=== PATIENT | male | born 1970 | race Caucasian/White ===

== ENCOUNTER 2025-03-16 18:38 | Emergency (ER) | payer OTHER, SELFPAY ==
[2025-03-16 18:48] VITALS: BP 151/83; PULSE 108; TEMP 37.1; O2SAT 96; BMI 47.9
--- NOTE | 2025-03-16 19:12 | ECG_ITS ---
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 Measurements Intervals [place] Rate: 96 P: 61 IN: 174 QRS: 29 QRSD: 86 T: 16 QT: 332 QTc: 385 Interpretive Statements 1100 Sinus rhythm 9110 normal ECG Compared to ECG 01/21/2019 23:41:21 T-wave abnormality no longer present Electronically Signed On 03-17-2025 19:54:16 EDT by ADWOA NGUYỄN M.D.
--- NOTE | 2025-03-16 19:12 | CT_ITS ---
[address] [address] Patient Name: ELISEO ACEVEDO MRN: [id number] date: 1970 Sex: M Assigned Patient Location: ER Current Patient Location: ER Accession/Order Number: [id number] Exam Date: 03/16/2025 19:25 Report Date: 03/16/2025 19:43 At the request of: TITUS CROFT MD Procedure: CT head/brain wo con Unenhanced head CT TECHNIQUE: Contiguous axial imaging of the head. The CT exam was performed using one or more the following dose reduction techniques: Automated exposure control, adjustment of the MA and/or Kv according to patient size, or use of the iterative reconstruction technique. COMPARISON: None HISTORY: New onset of dizziness VENTRICLES: Within normal limits ATROPHY: None BRAIN PARENCHYMA: Adequate malcolm-white matter differentiation identified. HEMORRHAGE: None HERNIATION: No mass effect or herniation INFARCTION: No recent vascular distribution infarction is seen. EXTRA-AXIAL FLUID COLLECTIONS None MIDBRAIN: Unremarkable CAITLIN: Unremarkable MEDULLA: Unremarkable SINUSES: Unremarkable ORBITS: Grossly unremarkable MASTOIDS: Unremarkable BONY STRUCTURES Intact ADDITIONAL FINDINGS: CT/CT head/brain wo con IMPRESSION: No acute findings. Impression dictated by: Arnaldo Carrillo M.D. 03/16/2025 7:43 PM Dictation Location: [place] [address] Electronically authenticated by: [id number] Y Date: 03/16/2025 19:43
--- NOTE | 2025-03-16 19:13 | ED_ITS ---
HPI - Dizziness General Chief Complaint: Dizziness Stated Complaint: DIZZY Time Seen by Provider: 03/16/25 19:03 Source: patient Mode of arrival: walk-in Limitations: no limitations History of Present Illness HPI Narrative: This 55-year-old male with a history of migraine headaches and high cholesterol who had a cortisone injection in his left shoulder today for arthritis was sent to the emergency department from work for evaluation of dizziness. The patient states he picked up apart and twisted to put it down and suddenly felt lightheaded. He states he had a sensation of the room spinning. His symptoms are intermittent at this time with a mild general headache. He denies any nausea or vomiting. He states he did not pass out. He has no neck pain. He has no focal weakness numbness or tingling. He denies any chest pain or shortness of breath. He has no abdominal pain or back pain. He has no lower extremity pain or swelling. He has not had any episodes of confusion slurred speech or change in his vision. He was sent to the emergency department after being seen at the health clinic. The patient states they did not want him passing out at work. Someone in the health clinic told him that he had redness in his left ear. Related Data Home Medications ?Medication ?Instructions ?Recorded ?Confirmed doxepin 25 mg capsule mg 03/16/25 ergocalciferol (vitamin D2) 1,250 03/16/25 mcg (50,000 unit) capsule simvastatin 20 mg tablet mg 03/16/25 Allergies Allergy/AdvReac Type Severity Reaction Status Date / Time No Known Drug Allergies Allergy Verified 03/16/25 18:55 Review of Systems ROS Status of ROS 10 or more systems reviewed and unremark able except as noted in history and below Exam Narrative Exam Narrative: Vital signs and Nursing Notes reviewed: Patient is afebrile with an elevated pulse at 108, blood pressure is elevated 151/83, he is not hypoxic with pulse ox of 96% on room air General: Overweight adult male, he is awake, alert, oriented, no acute distress, lying comfortably on the stretcher-GCS 15 HEENT: Normocephalic atraumatic, mucous membranes are moist and pink, eyes are clear, normal conjunctiva, vision is grossly intact, posterior pharynx is normal in appearance. Tympanic membranes are normal bilaterally-there is a small amount of cerumen in the external left ear canal with no redness or swelling in the ear canal, tympanic membrane is normal in appearance and there is no appreciable effusion Neck: Supple, nontender, no pulsatile masses appreciated, no carotid bruits appreciated Chest: Lungs are clear to auscultation with good air entry, there is no wheezing rhonchi or rales appreciated no accessory muscle use, patient is speaking in complete sentences-no chest wall tenderness to palpation CVS: Regular rate and rhythm S1-S2, no murmurs rubs or gallops, pulses are brisk and equal bilaterally ABD: Obese, soft, nondistended, nontender, no rebound guarding or rigidity, bowel sounds are normal, no pulsatile masses appreciated Extremities: Moving all extremities, no lower extremity tenderness or swelling noted, negative Homans' sign, pulses are brisk and equal bilaterally Skin: Normal in appearance without rash,pallor, petechiae or purpura Neuro: No focal deficits, speech is clear, 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, upper and lower extremity strength and sensation is intact, no facial droop, negative pronator drift, positive rapid alternating hand movements, NIH stroke scale is 0 Constitutional Vital Signs, click to edit/add: Last Vital Signs Temp 98.8 F 03/16/25 18:48 Pulse 108 H 03/16/25 18:48 Resp 14 03/16/25 18:48 BP 151/83 H 03/16/25 18:48 Pulse Ox 96 03/16/25 18:48 O2 Del Method Room Air 03/16/25 18:48 Course Vital Signs Vital signs: Vital Signs Temperature 98.8 F 03/16/25 18:48 Pulse Rate 108 H 03/16/25 18:48 Respiratory Rate 14 03/16/25 18:48 Blood Pressure 151/83 H 03/16/25 18:48 Pulse Oximetry 96 03/16/25 18:48 Oxygen Delivery Method Room Air 03/16/25 18:48 Temperature 98.8 F 03/16/25 18:48 Pulse Rate 108 H 03/16/25 18:48 Respiratory Rate 14 03/16/25 18:48 Blood Pressure 151/83 H 03/16/25 18:48 Pulse Oximetry 96 03/16/25 18:48 Oxygen Delivery Method Room Air 03/16/25 18:48 MDM - Dizziness MDM Narrative Medical decision making narrative: This 55-year-old male who is obese and has a history of high cholesterol and migraine headaches was referred to the emergency department from [facility] for an evaluation of an episode of dizziness that occurred after he picked up a part and twisted to put it down. He denies any injury. He has no neck pain or swelling. There is no pulsatile masses. His neuroexam is normal. He does complain of some mild headache. He does not have any nausea or vomiting. He denies any chest pain or shortness of breath. He did have a cortisone shot earlier in the day. Upon arrival he was afebrile with mild tachycardia and elevated blood pressure. EKG is in normal sinus rhythm at [address] scan of the brain is negative. Cardiac labs were ordered. He has normal white count and stable hemoglobin. Electrolytes are normal with exception of an elevated c reatinine at 1.41 and a CO2 of 17.8. 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 I do not have a prior set of labs for comparison purposes. His glucose is minimally elevated at 129. Liver function test and troponin are both normal. The patient was up to the bathroom without difficulty and states that he is feeling somewhat better although did feel mildly dizzy upon going back into his room. After liter of normal saline, repeat BMP and troponin was ordered. Repeat BMP is improved with a creatinine now of 1.3. Troponin is still normal. I offered the patient admission for further hydration and continue monitoring but he wishes to be discharged home at this time. The patient's states that she thinks he is getting a migraine headache. His headache is improved but is still mildly present. His neuroexam remains normal. I am reluctant to give him any Toradol due to the elevated creatinine today. The patient states he is going to go home and go to bed. He was encouraged to drink plenty of fluids and follow- up closely with his family physician. Lab Data Attestation: I reviewed the patient's lab results. Labs: Lab Results 03/16/25 03/16/25 Range/Units 19:45 21:18 WBC 6.2 (4.0-11.0) 10^3/uL RBC 5.52 (4.70-6.10) 10^6/uL Hgb 16.3 (14.0-18.0) g/dL Hct 47.2 (42.0-54.0) % MCV 85.5 (80.0-94.0) fL MCH 29.5 (25.9-34.0) pg MCHC 34.5 (29.9-35.2) g/dL RDW 12.7 (11.0-15.0) % Plt Count 243 (150-450) 10^3/uL MPV 11.6 (9.5-13.5) fL Seg Neuts % (Manual) 89.0 H (43.0-75.0) Lymphocytes % (Manual) 4.0 L (20.5-60.0) % Atypical Lymphs % (Man) 1.0 % Monocytes % (Manual) 6.0 (1.7-12.0) % Eosinophils % (Manual) 0.0 L (0.9-7.0) % Basophils % (Manual) 0.0 L (0.2-2.0) % Neutrophils # (Manual) 5.51 (1.4-6.5) 10^3/uL Lymphocytes # (Manual) 0.24 L (1.20-3.80) 10^3/uL Abs Atypical Lymphs Man 0.06 Monocytes # (Manual) 0.37 (0.30-0.80) 10^3/uL Eosinophils # (Manual) 0.00 (0.00-0.70) 10^3/uL Basophils # (Manual) 0.00 (0.00-0.10) 10^3/uL Sodium 139 139 (136-145) mmol/L Potassium 3.8 3.9 (3.5-5.1) mmol/L Chloride 108 H 109 H (98-107) mmol/L Carbon Dioxide 17.8 L 18.5 L (21.0-32.0) mmol/L Anion Gap 17.0 15.4 BUN 20.0 H 20.0 H (7.0-18.0) mg/dL Creatinine 1.41 H 1.30 (0.70-1.30) mg/dL Est GFR ( Amer) >60 >60 (>=60 mL/min/1.73m^2) Est GFR (Non-Af Amer) 52 L 57 L (>=60 mL/min/1.73m^2) BUN/Creatinine Ratio 14.2 15.4 Glucose 129 H 129 H (74-106) mg/dL Calcium 9.0 8.6 (8.5-10.1) mg/dL Total Bilirubin 0.6 (0.2-1.0) mg/dL AST 36 (15-37) U/L ALT 82 H (16-63) U/L Alkaline Phosphatase 105 (46-116) U/L Troponin I High Sens 6.4 6.1 (4.0-76.1) pg/mL Total Protein 7.7 (6.4-8.2) g/dL Albumin 3.8 (3.4-5.0) g/dL Globulin 3.9 g/dL Albumin/Globulin Ratio 1.[address] scan - head: Radiologist's impression: ITS Impressions Head CT 03/16/25 19:12 IMPRESSION: No acute findings. Impression dictated by: Arnaldo Carrillo M.D. 03/16/2025 7:43 PM [facility]ation [facility] Electron[facility] authenticated by: [id number] Y Date: 03/16/2025 19:43 ECG Data Attestation: I personally reviewed and interpreted this ECG as follows: (Sinus rhythm at 96 bpm, normal axis, normal intervals, no acute ST segment elevation or T wave inversion) Discharge Plan Discharge Chief Complaint: Dizziness Clinical Impression: Dizziness, Dehydration, mild Patient Disposition: Home, Self-Care Time of Disposition Decision: 21:54 Condition: Good Prescriptions / Home Meds: No Action doxepin 25 mg capsule simvastatin 20 mg tablet ergocalciferol (vitamin D2) 1,250 mcg (50,000 unit) capsule Print Language: Bhutanese Instructions: Dehydration (ED), Dizziness (ED) Referrals: NEVAEH MORIN [Primary Care Provider, Family Practice] - 1 week
[2025-03-16] MEDS: MECLIZINE HCL 12.5 MG TABLET 25 MG PO (19:43)
[2025-03-16] MEDS: 0.9 % SODIUM CHLORIDE 1,000 ML 1000 ML IV (19:43)
[2025-03-16] MEDS: ACETAMINOPHEN 325 MG TABLET 650 MG PO (19:43)
[2025-03-16 20:22] LABS: Hematocrit 47.2 % (42.0-54.0); Hemoglobin 16.3 g/dL (14.0-18.0); Mean Corpuscular HGB Conc 34.5 g/dL (29.9-35.2); Mean Corpuscular Hemoglobin 29.5 pg (25.9-34.0); Mean Corpuscular Volume 85.5 fL (80.0-94.0); Platelet Count 243 10^3/uL (150-450); Red Blood Count 5.52 10^6/uL (4.70-6.10); White Blood Count 6.2 10^3/uL (4.0-11.0)
[2025-03-16 20:36] LABS: Atypical Lymphocytes % Manual 1.0 %; Atypical Lymphocytes Abs Man 0.06; Basophils Abs Manual 0.00 10^3/uL (0.00-0.10); Basophils Percent Manual 0.0 % (0.2-2.0); Eosinophils Absolute Manual 0.00 10^3/uL (0.00-0.70); Eosinophils Percent Manual 0.0 % (0.9-7.0); Lymphocytes Absolute Manual 0.24 10^3/uL (1.20-3.80); Lymphocytes Percent Manual 4.0 % (20.5-60.0); Monocytes Absolute Manual 0.37 10^3/uL (0.30-0.80); Monocytes Percent Manual 6.0 % (1.7-12.0); Segmented Neut Absolute Manual 5.51 10^3/uL (1.4-6.5); Segmented Neutrophils % Manual 89.0 (43.0-75.0)
[2025-03-16 20:38] LABS: Alanine Aminotransferase 82 U/L (16-63); Albumin Globulin Ratio 1.0; Albumin Level 3.8 g/dL (3.4-5.0); Alkaline Phosphatase 105 U/L (46-116); Anion Gap 17.0; Aspartate Amino Transferase 36 U/L (15-37); Blood Urea Nitrogen 20.0 mg/dL (7.0-18.0); Calcium 9.0 mg/dL (8.5-10.1); Carbon Dioxide 17.8 mmol/L (21.0-32.0); Chloride 108 mmol/L (98-107); Estimated GFR (African America >60 (>=60 mL/min/1.73m^2); Estimated GFR (Non-African Ame 52 (>=60 mL/min/1.73m^2); Globulin 3.9 g/dL; Glucose 129 mg/dL (74-106); Potassium 3.8 mmol/L (3.5-5.1); Sodium 139 mmol/L (136-145); Total Protein 7.7 g/dL (6.4-8.2)
[2025-03-16 21:42] LABS: Anion Gap 15.4; Blood Urea Nitrogen 20.0 mg/dL (7.0-18.0); Calcium 8.6 mg/dL (8.5-10.1); Carbon Dioxide 18.5 mmol/L (21.0-32.0); Chloride 109 mmol/L (98-107); Estimated GFR (African America >60 (>=60 mL/min/1.73m^2); Estimated GFR (Non-African Ame 57 (>=60 mL/min/1.73m^2); Glucose 129 mg/dL (74-106); Potassium 3.9 mmol/L (3.5-5.1); Sodium 139 mmol/L (136-145)
[2025-03-16 22:01] VITALS: BP 132/80; PULSE 80; O2SAT 98
== END 2025-03-16 22:04 | disposition home or self-care (01) ==
PROVIDERS: Emergency Provider Emergency Medicine; PCP Family Medicine
DX: E86.0 Dehydration (principal); R42 Dizziness and giddiness; E78.00 Pure hypercholesterolemia, unspecified; E66.9 Obesity, unspecified; Z68.42 Body mass index [BMI] 45.0-49.9, adult
CPT/HCPCS: 36415; 70450; 80048; 80053; 84484; 85007; 85027; 93005; 99285

== ENCOUNTER 2025-03-22 16:28 | Emergency (ER) | payer OTHER, SELFPAY ==
[2025-03-22] VITALS (22 sets, daily range): BP systolic 123–150; BP diastolic 82–95; PULSE 60–74; TEMP 37.1; O2SAT 95–97; BMI 47.8
--- NOTE | 2025-03-22 17:05 | CT_ITS ---
The [address] [address] Patient Name: ELISEO ACEVEDO MRN: [id number] date: 1970 Sex: M Assigned Patient Location: ER Current Patient Location: ER Accession/Order Number: [id number] Exam Date: 03/22/2025 17:12 Report Date: 03/22/2025 17:23 At the request of: CHRISTIANE ANGUIANO MD Procedure: CT head/brain wo con CT BRAIN WITHOUT CONTRAST: CLINICAL HISTORY: imbalance COMPARISON: CT brain 03/16/2025 TECHNIQUE: Contiguous axial unenhanced images were obtained through the brain. This CT exam was performed using one or more following dose reduction techniques: Automated exposure control, adjustment of the mA and/or kV according to patient size, or use of iterative reconstruction technique. FINDINGS: There is no evidence of midline shift, intra or extra-axial fluid collection, hemorrhage or CT evidence of stroke. Posterior fossa appears unremarkable. Visualized intraorbital contents demonstrate no acute findings. Visualized paranasal sinuses are clear. The surrounding soft tissues are normal. CT/CT head/brain wo con IMPRESSION: NO ACUTE INTRACRANIAL ABNORMALITY. Impression dictated by: Lester Gomez Jr. DChantelOChantel 03/22/2025 5:23 PM Dictation Location: [place] [address] Electronically authenticated by: [id number] Y Date: 03/22/2025 17:23
--- NOTE | 2025-03-22 17:43 | ECG_ITS ---
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 Measurements Intervals [place] Rate: 64 P: 38 [place]: 170 QRS: 0 QRSD: 90 T: 12 QT: 380 QTc: 389 Interpretive Statements 1100 Sinus rhythm 9110 normal ECG Compared to ECG 03/16/2025 19:19:25 No significant changes Electronically Signed On 03-23-2025 18:23:36 EDT by ADWOA NGUYỄN M.D.
[2025-03-22 18:04] LABS: Hematocrit 47.1 % (42.0-54.0); Hemoglobin 16.2 g/dL (14.0-18.0); Immature Granulocytes Abs Auto 0.04 10^3/uL (0.00-0.03); Immature Granulocytes Pct Auto 0.5 % (0.0-0.5); Lymphocytes Absolute Auto 1.9 10^3/uL (1.2-3.8); Mean Corpuscular HGB Conc 34.4 g/dL (29.9-35.2); Mean Corpuscular Hemoglobin 29.7 pg (25.9-34.0); Mean Corpuscular Volume 86.4 fL (80.0-94.0); Platelet Count 244 10^3/uL (150-450); Red Blood Count 5.45 10^6/uL (4.70-6.10); White Blood Count 7.9 10^3/uL (4.0-11.0)
--- NOTE | 2025-03-22 18:23 | ED.GENADUL1 ---
HPI HPI - General Adult General Chief complaint: Dizziness Stated complaint: headache dizziness Time Seen by Provider: 03/22/25 17:04 Source: patient Mode of arrival: walk-in Limitations: no limitations History of Present Illness HPI narrative: Patient is a 55-year-old male with a PMH of HLD and migraines that presents to the emergency department with complaints of dizziness since last Sunday, almost 7 days now. He also started to get a headache progressively on Sunday and does have a history of migraines. He has been taking his abortive migraine medication without resolution of his headache. He denies any nausea/vomiting, neurological deficits, extremity weakness or numbness. He does have some photophobia, but has not had any episodes of confusion slurred speech or visual changes. He describes his dizziness as room spinning when he stands up or moves his neck to the side to quickly. He denies chest pain, abdominal pain, diarrhea, recent illness or sick contacts. He was seen in this emergency department on Sunday,03/16/2025 and was treated for GARRY and dehydration. He he did have a mild headache at that time as well. Related Data Home Medications ?Medication ?Instructions ?Recorded ?Confirmed doxepin 25 mg capsule 25 mg PO .qhs 03/16/25 03/22/25 ergocalciferol (vitamin D2) 1,250 1,250 mcg PO QDAY 03/16/25 03/22/25 mcg (50,000 unit) capsule simvastatin 20 mg tablet 20 mg PO QDAY 03/16/25 03/22/25 topiramate 100 mg tablet 300 mg PO QDAY 03/22/25 03/22/25 Allergies Allergy/AdvReac Type Severity Reaction Status Date / Time No Known Drug Allergies Allergy Verified 03/22/25 16:43 Opioid HPI Opioid Management Most Recent Opioid Data: Last Pain Scale 5 Today, 20:57 Last AUG Pain Assessment Today, 19:22 Review of Systems ROS Status of ROS 10 or more systems reviewed and unremarkable except as noted in history and below PFSH PFSH Social History Little interest or pleasure in doing things: not at all Feeling down, depressed, or hopeless: not at all Exam Narrative Exam Narrative: General: No distress, age-appropriate Skin: Warm, dry, no pallor. No rash. Head: Normocephalic, atraumatic. Neck: Supple, non-tender. Eye: Pupils are equal, round and EOMI. No scleral icterus. Ears, Nose, Mouth, and Throat: No nasal mucosal hypertrophy. Oral mucosa is moist, no posterior oropharynx erythema, uvula is mid-line Cardiovascular: Regular Rate and Rhythm without murmur, gallop or rub. Respiratory: No accessory muscle use or respiratory distress. Lungs are clear to auscultation, no wheezing, rales or rhonchi Chest Wall: no tenderness Back: No midline thoracic or lumbar vertebral tenderness. Musculoskeletal: Full ROM of all extremities, no calf or popliteal tenderness GI: Abdomen is soft, non-distended, non tender to palpation. No masses appreciated. No rebound, guarding, or rigidity noted. Neurological: A&O x4. No cranial nerve dysfunction observed. No truncal ataxia. Moves all extremities. Sensation intact. Psychiatric: Cooperative and interactive. Normal mood and affect. Constitutional Vital Signs, click to edit/add: Last Vital Signs Temp 98.8 F 03/22/25 16:45 Pulse 60 03/22/25 21:00 Resp 20 03/22/25 21:00 BP 123/82 03/22/25 21:00 Pulse Ox 97 03/22/25 21:00 O2 Del Method Room Air 03/22/25 16:45 Course Vital Signs Vital signs: Vital Signs Temperature 98.8 F 03/22/25 16:45 Pulse Rate 74 03/22/25 16:45 Respiratory Rate 20 03/22/25 16:45 Blood Pressure 150/95 H 03/22/25 16:45 Pulse Oximetry 95 03/22/25 16:45 Oxygen Delivery Method Room Air 03/22/25 16:45 Temperature 98.8 F 03/22/25 16:45 Pulse Rate 60 03/22/25 21:00 Respiratory Rate 20 03/22/25 21:00 Blood Pressure 123/82 03/22/25 21:00 Pulse Oximetry 97 03/22/25 21:00 Oxygen Delivery Method Room Air 03/22/25 16:45 Medical Decision Making MDM Narrative Medical decision making narrative: This is a 55-year-old male that presents to the emergency department with complaints of about 6 days of dizziness and 5 days of migraine headache. He was evaluated at this emergency department on 03/16/2025 and treated for elevated creatinine at 1.4 and dehydration. He was given fluids with improvement in his creatinine to 1.3. He was offered admission for further IVF but declined. He did see his PCP who thinks that his condition is vertigo and he was placed off of work for a week. He does follow with a neurologist for his migraines but does not see that provider until April. He does work at [employer]. His headache progressively started sometime last week and got worse as the week went on. He has been taking his abortive migraine medication without relief of his headache. He denies any neurological deficits, slurred speech, altered mental status, extremity weakness or numbness. He does report photophobia. On his ED visit on 03/[address] head completed that was negative for acute abnormalities. CMP, CBC, troponin, UA ordered. On arrival patient is in no distress, BP is hypertensive, otherwise vitals are stable. Patient is afebrile at 98.8. There are no neurological deficits. Patient's significant other at bedside states that his migraine has been bothering him a lot. He is not currently dizzy or experiencing room spinning while sitting on the ED cart. EKG on arrival today reviewed and is normal sinus rhythm, no ischemic changes such as ST elevation. CT head ordered and reviewed and negative for acute cranial abnormality. Dizziness - EKG as above, CT head as above negative?no changes in either to his explain dizziness - CBC WNL, no anemia - CMP: Cr improved today and within normal limits, 1.1, was 1.3 at discharge on Sunday. BUN 27, elevated as compared with 6 days ago at 20. Patient receiving a liter of fluid for headache as below - Troponin negative - UA negative for infection Headache - CT head negative for acute cranial abnormality - GCS 15, no focal neurological deficits, 5/5 strength in bilateral upper and lower extremities, distally neurovascularly intact with light touch as well - IV placed, 30 mg Toradol IV, 10 mg IV Reglan, 50 mg IV Benadryl, 1 L normal saline ordered and given. On reevaluation patient still having a headache, reports 4/10 pain. 4 mg morphine given. On reevaluation patient's headache is improved. We discussed discharge to home as labs and CT scan are reassuring and patient agrees. - Patient discharged with return precautions and outpatient neurology or PCP follow-up. Differential Diagnosis Differential Diagnosis: Refractory migraine, vestibular migraine, BPPV Lab Data Lab results reviewed: Yes I reviewed the patient's lab results Labs: Lab Results 03/22/25 03/22/25 03/22/25 Range/Units 16:56 17:58 20:14 WBC 7.9 (4.0-11.0) 10^3/uL RBC 5.45 (4.70-6.10) 10^6/uL Hgb 16.2 (14.0-18.0) g/dL Hct 47.1 (42.0-54.0) % MCV 86.4 (80.0-94.0) fL MCH 29.7 (25.9-34.0) pg MCHC 34.4 (29.9-35.2) g/dL RDW 13.2 (11.0-15.0) % Plt Count 244 (150-450) 10^3/uL MPV 10.8 (9.5-13.5) fL Neut % (Auto) 63.1 (43.0-75.0) % Lymph % (Auto) 23.6 (20.5-60.0) % [place] % (Auto) 11.2 (1.7-12.0) % Eos % (Auto) 1.0 (0.9-7.0) % Baso % (Auto) 0.6 (0.2-2.0) % Neut # (Auto) 5.0 (1.4-6.5) 10^3/uL Lymph # (Auto) 1.9 (1.2-3.8) 10^3/uL [place] # (Auto) 0.9 H (0.3-0.8) 10^3/uL Eos # (Auto) 0.1 (0.0-0.7) 10^3/uL Baso # (Auto) 0.1 (0.0-0.1) 10^3/uL Abs Immat Gran (auto) 0.04 H (0.00-0.03) 10^3/uL Imm/Tot Granulo (auto) 0.5 (0.0-0.5) % Sodium 141 (136-145) mmol/L Potassium 4.1 (3.5-5.1) mmol/L Chloride 105 (98-107) mmol/L Carbon Dioxide 22.2 (21.0-32.0) mmol/L Anion Gap 17.9 BUN 27.0 H (7.0-18.0) mg/dL Creatinine 1.11 (0.70-1.30) mg/dL Est GFR ( Amer) >60 (>=60 mL/min/1.73m^2) Est GFR (Non-Af Amer) >60 (>=60 mL/min/1.73m^2) BUN/Creatinine Ratio 24.3 Glucose 96 (74-106) mg/dL Calcium 8.9 (8.5-10.1) mg/dL Total Bilirubin 0.6 (0.2-1.0) mg/dL AST 33 (15-37) U/L ALT 68 H (16-63) U/L Alkaline Phosphatase 96 (46-116) U/L Troponin I High Sens 5.2 (4.0-76.1) pg/mL Total Protein 7.6 (6.4-8.2) g/dL Albumin 3.9 (3.4-5.0) g/dL Globulin 3.7 g/dL Albumin/Globulin Ratio 1.1 Urine Color Yellow (YELLOW) Urine Clarity Clear (CLEAR) Urine pH 5.5 (5.0-9.0) Ur Specific [place] 1.025 (1.005-1.025) Urine Protein Negative (NEG/TRACE) mg/dL Urine Glucose (UA) Negative (NEGATIVE) mg/dL Urine Ketones Negative (NEGATIVE) mg/dL Urine Occult Blood Negative (NEGATIVE) Urine Nitrite Negative (NEGATIVE) Urine Bilirubin Negative (NEGATIVE) Urine Urobilinogen 0.2 (0.2-1.0) EU/dL Ur Leukocyte Esterase Negative (NEGATIVE) POC Glucose 113 H (74-106) mg/dL Imaging Data CT scan - head: Attestation: I have reviewed the pertinent imaging results. Radiologist's impression: ITS Impressions Head CT 03/22/25 17:05 IMPRESSION: NO ACUTE INTRACRANIAL ABNORMALITY. Impression dictated by: Lester Gomez Jr., D.O. 03/22/2025 5:23 PM Dictation Location: [place] [address] Electronically authenticated by: [id number] Y Date: 03/22/2025 17:23 ECG Data Attestation: ?I have reviewed the pertinent ECG results. Discharge Plan Discharge Chief Complaint: Dizziness Clinical Impression: Dizziness, Migraine Patient Disposition: Home, Self-Care Time of Disposition Decision: 21:31 Condition: Good Mode of Transportation: Private Vehicle Prescriptions / Home Meds: No Action topiramate 100 mg tablet 300 mg PO QDAY doxepin 25 mg capsule 25 mg PO .qhs simvastatin 20 mg tablet 20 mg PO QDAY ergocalciferol (vitamin D2) 1,250 mcg (50,000 unit) capsule 1,250 mcg PO QDAY Print Language: Arabic Instructions: Migraine Headache (ED), Dizziness (ED) Referrals: NEVAEH MORIN [Primary Care Provider, Family Practice] - 1 week
[2025-03-22 18:27] LABS: Alanine Aminotransferase 68 U/L (16-63); Albumin Globulin Ratio 1.1; Albumin Level 3.9 g/dL (3.4-5.0); Alkaline Phosphatase 96 U/L (46-116); Anion Gap 17.9; Aspartate Amino Transferase 33 U/L (15-37); Blood Urea Nitrogen 27.0 mg/dL (7.0-18.0); Calcium 8.9 mg/dL (8.5-10.1); Carbon Dioxide 22.2 mmol/L (21.0-32.0); Chloride 105 mmol/L (98-107); Estimated GFR (African America >60 (>=60 mL/min/1.73m^2); Estimated GFR (Non-African Ame >60 (>=60 mL/min/1.73m^2); Globulin 3.7 g/dL; Glucose 96 mg/dL (74-106); Potassium 4.1 mmol/L (3.5-5.1); Sodium 141 mmol/L (136-145); Total Protein 7.6 g/dL (6.4-8.2)
[2025-03-22] MEDS: 0.9 % SODIUM CHLORIDE 1,000 ML 999 ML IV (19:19)
[2025-03-22] MEDS: KETOROLAC TROMETHAMINE 30 MG/ML VIAL IVP (19:22)
[2025-03-22] MEDS: METOCLOPRAMIDE HCL 10 MG/2 ML VIAL IVP (19:22)
[2025-03-22] MEDS: DIPHENHYDRAMINE HCL 50 MG/ML VIAL IVP (19:22)
[2025-03-22 20:22] LABS: Glucose Urine UA NEGATIVE (NEGATIVE)
[2025-03-22] MEDS: MORPHINE SULFATE 4 MG/ML VIAL IV (20:57)
== END 2025-03-22 21:59 | disposition home or self-care (01) ==
PROVIDERS: Physician Assistant; Emergency Provider Emergency Medicine; PCP Family Medicine
DX: R42 Dizziness and giddiness (principal); G43.909 Migraine, unspecified, not intractable, without status migrainosus; E78.5 Hyperlipidemia, unspecified
CPT/HCPCS: 36415; 70450; 80053; 81003; 82948; 84484; 85025; 93005; 96361; 96374; 96375; 99285; J1200; J1885; J2270; J2765